=== PATIENT | female | born 1935 | race Caucasian/White ===

== ENCOUNTER 2016-05-24 10:08 | Emergency (ER) | payer MEDICARE, OTHER ==
[~2016-05-24] VITALS: Ht 170.2 cm; Wt 54.5 kg
[~2016-05-24 10:08] MED LIST: ATENOLOL25 MG PO; BP MED
[2016-05-24 10:10] VITALS: TEMP 98.6
[2016-05-24 13:23] VITALS: BP 174/90; PULSE 71
== END 2016-05-24 12:27 | disposition home or self-care (01) ==
LOC: COL.ER 10:08
DX: S00.83XA Contusion of other part of head, initial encounter (principal); W18.09XA Striking against other object with subsequent fall, initial encounter; M25.511 Pain in right shoulder

== ENCOUNTER → 2016-09-06 | Outpatient (CLI) | payer MEDICARE, OTHER | LOC: MC.RAD 08:43 | DX: Z12.31 Encounter for screening mammogram for malignant neoplasm of breast (principal) ==

== ENCOUNTER 2017-09-13 20:26 | Inpatient (IN) | payer MEDICARE, OTHER ==
[~2017-09-13] VITALS: Ht 167.6 cm; Wt 64.1 kg
[~2017-09-13 20:26] MED LIST changes: +ATARAX 10MG10 MG/TAB PO; +LEVOXYL0.025 MG; +TENORMIN 2525 MG/TAB PO; +VITAMIN D31000 I1 PO; +ZYRTEC 10MG10 MG PO
[2017-09-13] MEDS ORDERED: HCTZ12.5TAB PO (21:04)
[2017-09-13] MEDS ORDERED: SYNTHROID 0.0.025 MG PO (21:04)
[2017-09-13] MEDS ORDERED: TENORMIN100 MG PO ×2 (21:04→21:05)
[2017-09-13] MEDS ORDERED: MASON NATURAL2000 IU (21:05)
[2017-09-13] MEDS ORDERED: ZYRTEC 10MG10 MG PO (21:05)
[2017-09-13] MEDS ORDERED: FLUOROPLEX1% TP (21:06)
[2017-09-13 21:25] LABS: BASO # 0.1 (0.0-0.2); BASO % 0.5 % (0.0-2.0); EOS % 0.1 % (0-4.0); GRAN % 85.2 % (42.2-75.2); HEMATOCRIT 42.2 % (37.0-47.0); HEMOGLOBIN 14.3 g/dl (12.5-16.0); LYMPH # 1.1 (1.2-3.4); LYMPH % 9.5 % (20.0-51.0); MEAN CELL VOLUME 89 fl (80.0-100.0); MEAN CORPUSCULAR HEMOGLOBIN 30 pg (27.0-31.0); MEAN CORPUSCULAR HGB CONC 34 g/dl (33.0-37.0); MEAN PLATELET VOLUME 9.8 fl (7.4-10.4); MONO # 0.5 (0.1-0.6); MONO % 4.5 % (1.7-9.3); PLATELET COUNT 276 K/mm3 (130-400); RED BLOOD COUNT 4.74 M/mm3 (4.10-5.30); REDCELL DISTRIBUTION WIDTH-CV 12.4 % (11.5-14.5)
[2017-09-13 21:33] LABS: ALBUMIN 3.8 gm/dL (3.5-5.0); CALCIUM 9.1 mg/dL (8.4-10.2); CREATININE, serum 1.18 mg/dL (0.52-1.25); POTASSIUM 3.2 mmol/L (3.4-5.0); TOTAL PROTEIN 7.2 gm/dL (6.4-8.2)
[2017-09-13 21:55] LABS: TROPONIN-I 0.04 ng/mL (0.000-0.034)
[2017-09-13 22:05] LABS: COLLECTION METHOD CATHETER
[2017-09-13 22:13] LABS: MUCOUS Present /lpf; PH 5 (5-8); URINE APPEARANCE Hazy; URINE BACTERIA Rare /hpf; URINE BILIRUBIN Negative (NEGATIVE); URINE BLOOD 1+ (NEGATIVE); URINE COLOR Yellow; URINE GLUCOSE Negative (NEGATIVE); URINE KETONE Trace (NEGATIVE); URINE LEUKOCYTE ESTERASE 1+ (NEGATIVE); URINE NITRATE Negative (NEGATIVE); URINE PROTEIN(semi-quant) Negative (NEGATIVE); URINE RBC 0-2 /hpf; URINE UROBILINOGEN Negative (NEGATIVE)
[2017-09-13] MEDS ORDERED: ATARAX 10MG10 MG/TAB PO (22:39)
[2017-09-13] MEDS ORDERED: ATARAX 25MG25 MG/TAB PO (23:17)
[2017-09-13] MEDS ORDERED: LEVOXYL0.025 MG PO (23:21)
[2017-09-14] VITALS (7 sets, daily range): BP systolic 100–159; BP diastolic 52–82; PULSE 57–77; TEMP 97.3–99
[2017-09-14] MEDS ORDERED: MIRALAX PA17 GM/Dose PO (01:20)
[2017-09-14] MEDS ORDERED: NYSTATIN OR100 MU/ML PO (01:20)
[2017-09-14] MEDS ORDERED: TYLENOL 325MG325 MG PO (01:22)
[2017-09-14] MEDS ORDERED: ULTRAM 50MG TAB50 MG PO (01:24)
[2017-09-14 06:45] LABS: BASO % 0.4 % (0.0-2.0); EOS # 0.1 (0.0-0.7); EOS % 0.6 % (0-4.0); GRAN # 6.4 (1.4-6.5); GRAN % 75.5 % (42.2-75.2); HEMATOCRIT 38.5 % (37.0-47.0); HEMOGLOBIN 12.8 g/dl (12.5-16.0); LYMPH # 1.2 (1.2-3.4); LYMPH % 13.6 % (20.0-51.0); MEAN CELL VOLUME 91 fl (80.0-100.0); MEAN CORPUSCULAR HEMOGLOBIN 30 pg (27.0-31.0); MEAN CORPUSCULAR HGB CONC 33 g/dl (33.0-37.0); MEAN PLATELET VOLUME 10.2 fl (7.4-10.4); MONO # 0.8 (0.1-0.6); MONO % 9.5 % (1.7-9.3); PLATELET COUNT 252 K/mm3 (130-400); RED BLOOD COUNT 4.25 M/mm3 (4.10-5.30); REDCELL DISTRIBUTION WIDTH-CV 12.6 % (11.5-14.5)
[2017-09-14 06:59] LABS: CALCIUM 8.3 mg/dL (8.4-10.2); CREATININE, serum 1.02 mg/dL (0.52-1.25); POTASSIUM 3.6 mmol/L (3.4-5.0)
[2017-09-14 07:15] LABS: TROPONIN-I 6 HR POST INITIAL 0.054 ng/mL (0.000-0.034)
[2017-09-15 04:26] VITALS: BP 157/78; PULSE 68; TEMP 98.6
[2017-09-15 07:40] VITALS: BP 156/78; PULSE 70; TEMP 98.1
[2017-09-15 09:35] LABS: CALCIUM 8.8 mg/dL (8.4-10.2); CREATININE, serum 1.21 mg/dL (0.52-1.25); POTASSIUM 3.4 mmol/L (3.4-5.0)
[2017-09-15 12:08] VITALS: BP 126/73; PULSE 74; TEMP 98.3
[2017-09-15 16:30] VITALS: BP 124/69; PULSE 72; TEMP 98.4
[2017-09-15 19:21] VITALS: BP 155/89; PULSE 94; TEMP 99.6
[2017-09-15 23:43] VITALS: BP 170/69; PULSE 63; TEMP 97.5
[2017-09-16 04:28] VITALS: BP 136/79; PULSE 80; TEMP 98.1
[2017-09-16 06:44] LABS: BASO # 0.1 (0.0-0.2); BASO % 0.6 % (0.0-2.0); EOS # 0.2 (0.0-0.7); EOS % 2.4 % (0-4.0); GRAN # 5.5 (1.4-6.5); GRAN % 68.8 % (42.2-75.2); HEMATOCRIT 37.6 % (37.0-47.0); HEMOGLOBIN 12.5 g/dl (12.5-16.0); LYMPH # 1.4 (1.2-3.4); LYMPH % 17.3 % (20.0-51.0); MEAN CELL VOLUME 88 fl (80.0-100.0); MEAN CORPUSCULAR HEMOGLOBIN 29 pg (27.0-31.0); MEAN CORPUSCULAR HGB CONC 33 g/dl (33.0-37.0); MEAN PLATELET VOLUME 10.3 fl (7.4-10.4); MONO # 0.9 (0.1-0.6); MONO % 10.6 % (1.7-9.3); PLATELET COUNT 215 K/mm3 (130-400); RED BLOOD COUNT 4.26 M/mm3 (4.10-5.30); REDCELL DISTRIBUTION WIDTH-CV 12.8 % (11.5-14.5)
[2017-09-16 07:08] LABS: CALCIUM 8.7 mg/dL (8.4-10.2); CREATININE, serum 0.99 mg/dL (0.52-1.25); POTASSIUM 3.2 mmol/L (3.4-5.0)
[2017-09-16 07:30] VITALS: BP 157/80; PULSE 65; TEMP 98.8
[2017-09-16 12:36] VITALS: BP 151/68; PULSE 72; TEMP 98.1
[2017-09-16 15:52] VITALS: BP 183/79; PULSE 65; TEMP 98
[2017-09-16 19:42] VITALS: BP 177/78; PULSE 84; TEMP 98.8
[2017-09-16 23:25] VITALS: BP 156/77; PULSE 74; TEMP 98
[2017-09-17 03:34] VITALS: BP 166/101; PULSE 73; TEMP 98.3
[2017-09-17 06:34] LABS: BASO # 0.1 (0.0-0.2); BASO % 0.7 % (0.0-2.0); EOS # 0.2 (0.0-0.7); EOS % 2.3 % (0-4.0); GRAN # 7.9 (1.4-6.5); GRAN % 74.9 % (42.2-75.2); HEMATOCRIT 39.6 % (37.0-47.0); HEMOGLOBIN 13.2 g/dl (12.5-16.0); LYMPH # 1.4 (1.2-3.4); LYMPH % 12.9 % (20.0-51.0); MEAN CELL VOLUME 90 fl (80.0-100.0); MEAN CORPUSCULAR HEMOGLOBIN 30 pg (27.0-31.0); MEAN CORPUSCULAR HGB CONC 33 g/dl (33.0-37.0); MEAN PLATELET VOLUME 10.2 fl (7.4-10.4); MONO # 0.9 (0.1-0.6); MONO % 8.8 % (1.7-9.3); PLATELET COUNT 231 K/mm3 (130-400); RED BLOOD COUNT 4.42 M/mm3 (4.10-5.30); REDCELL DISTRIBUTION WIDTH-CV 12.6 % (11.5-14.5)
[2017-09-17 06:44] LABS: CALCIUM 8.9 mg/dL (8.4-10.2); CREATININE, serum 0.9 mg/dL (0.52-1.25); MAGNESIUM 1.8 mg/dL (1.6-2.3)
[2017-09-17 07:42] VITALS: BP 169/79; PULSE 76; TEMP 98.5
[2017-09-17 12:11] VITALS: BP 181/89; PULSE 96; TEMP 97.7
[2017-09-17 16:24] VITALS: BP 130/85; PULSE 80; TEMP 98.2
[2017-09-17 20:24] VITALS: BP 155/73; PULSE 67; TEMP 98.2
[2017-09-18 00:53] VITALS: BP 167/91; PULSE 67; TEMP 97.9
[2017-09-18 03:57] VITALS: BP 141/86; PULSE 72; TEMP 97.3
[2017-09-18 07:54] LABS: CALCIUM 8.8 mg/dL (8.4-10.2); CREATININE, serum 0.96 mg/dL (0.52-1.25); POTASSIUM 3.9 mmol/L (3.4-5.0)
[2017-09-18 08:03] VITALS: BP 151/78; PULSE 78; TEMP 98.2
[2017-09-18] MEDS ORDERED: AMOXICILLIN 50500 MG PO (08:59)
[2017-09-18] MEDS ORDERED: TENORMIN100 MG PO (09:00)
[2017-09-18] MEDS ORDERED: ULTRAM 50MG TAB50 MG PO (09:00)
[2017-09-18] MEDS ORDERED: ALTACE 5MG5 MG PO (09:00)
[2017-09-18] MEDS ORDERED: MIRALAX PA17 GM/Dose PO (09:01)
== END 2017-09-18 13:57 | DRG 640 ==
LOC: COL.ER 20:26 → MEDICAL 22:26
PROVIDERS: Emergency Medicine; Internal Medicine; Nurse Practitioner; Physician Assistant
DX: E86.0 Dehydration (principal); I21.A1 Myocardial infarction type 2; N39.0 Urinary tract infection, site not specified; F05 Delirium due to known physiological condition; R00.1 Bradycardia, unspecified; Z66 Do not resuscitate; B95.2 Enterococcus as the cause of diseases classified elsewhere; B96.20 Unspecified Escherichia coli [E. coli] as the cause of diseases classified elsewhere; I10 Essential (primary) hypertension; E87.6 Hypokalemia; F03.90 Unspecified dementia, unspecified severity, without behavioral disturbance, psychotic disturbance, mood disturbance, and anxiety; Z87.891 Personal history of nicotine dependence
CPT/HCPCS: 99232-AI; 99239; G0378; G8978-GP; G8979-GP; G8987-GO; G8988-GO; J1650; J3480; J7030; J7050

== ENCOUNTER 2017-10-27 15:17 | Inpatient (IN) | payer MEDICARE, OTHER ==
[~2017-10-27] VITALS: Ht 160 cm; Wt 56.6 kg
[~2017-10-27 15:17] MED LIST changes: +ALTACE 5MG5 MG PO; +AMOXICILLIN 50500 MG PO; +ATARAX 25MG25 MG/TAB PO; +FLUOROPLEX1% TP; +HCTZ12.5TAB PO; +LEVOXYL0.025 MG PO; +MASON NATURAL2000 IU; +MIRALAX PA17 GM/Dose PO; +NYSTATIN OR100 MU/ML PO; +SYNTHROID 0.0.025 MG PO; +TENORMIN100 MG PO; +TYLENOL 325MG325 MG PO; +ULTRAM 50MG TAB50 MG PO
[2017-10-27] MEDS ORDERED: NORVASC2.5 MG PO ×2 (15:29→15:49)
[2017-10-27] MEDS ORDERED: SYNTHROID 0.0.025 MG PO ×2 (15:29→15:49)
[2017-10-27] MEDS ORDERED: LOPRESSOR 225 MG/TAB PO ×2 (15:30→15:50)
[2017-10-27] MEDS ORDERED: MICROZIDE12.5 MG PO (15:30)
[2017-10-27] MEDS ORDERED: MASON NATURAL2000 IU PO (15:49)
[2017-10-27] MEDS ORDERED: ALTACE 5MG5 MG PO (15:50)
[2017-10-27] MEDS ORDERED: ZYRTEC 10MG10 MG PO (15:50)
[2017-10-27] MEDS ORDERED: ASPIRIN 81M81 MG/TA2 PO (15:51)
[2017-10-27] MEDS ORDERED: TAMBOCOR50 MG PO (15:52)
[2017-10-27 15:55] LABS: HEMATOCRIT 42.1 % (37.0-47.0); HEMOGLOBIN 13.6 g/dl (12.5-16.0); MEAN CELL VOLUME 92 fl (80.0-100.0); MEAN CORPUSCULAR HEMOGLOBIN 30 pg (27.0-31.0); MEAN CORPUSCULAR HGB CONC 32 g/dl (33.0-37.0); MEAN PLATELET VOLUME 9.3 fl (7.4-10.4); PLATELET COUNT 330 K/mm3 (130-400); RED BLOOD COUNT 4.57 M/mm3 (4.10-5.30); REDCELL DISTRIBUTION WIDTH-CV 13.4 % (11.5-14.5)
[2017-10-27 15:59] LABS: PROTHROMBIN TIME 11.9 SECONDS (9.7-12.8)
[2017-10-27 16:05] LABS: ALBUMIN 3.9 gm/dL (3.5-5.0); BILIRUBIN,TOTAL 0.6 mg/dL (0.0-1.0); CALCIUM 9.2 mg/dL (8.4-10.2); CREATININE, serum 1.33 mg/dL (0.52-1.25); POTASSIUM 3.5 mmol/L (3.4-5.0); TOTAL PROTEIN 7.1 gm/dL (6.4-8.2)
[2017-10-27 16:09] LABS: BAND 6 % (0-10); LYMPHOCYTE 4 % (20.0-51.0); NEUTROPHILS 89 % (42.0-75.2); PLATELET ESTIMATE NORMAL (NORMAL)
[2017-10-27 16:24] LABS: TROPONIN-I 0.066 ng/mL (0.000-0.034)
[2017-10-27 16:35] LABS: ARTERIAL BLD GAS TCO2 CT 22.2; ARTERIAL BLOOD GAS BASE EXCESS -3.5 (-2-2); ARTERIAL BLOOD GAS HCO3 21.1 meq/L (22-26); ARTERIAL BLOOD GAS PCO2 36.5 mmHg (35-45); ARTERIAL BLOOD GAS PO2 74.9 mmHg (80-100); ARTERIAL BLOOD GAS pH 7.38 (7.35-7.45)
[2017-10-27 20:00] VITALS: BP 128/78; PULSE 94
[2017-10-27 20:30] VITALS: BP 111/66; PULSE 92
[2017-10-27 20:31] VITALS: BP 111/66; BP 128/78; PULSE 92; PULSE 97; TEMP 98.8
[2017-10-27 21:29] VITALS: BP 99/68; PULSE 91
[2017-10-27 22:00] VITALS: BP 132/87; PULSE 90
[2017-10-27 22:15] LABS: COLLECTION METHOD CATHETER
[2017-10-27 22:23] LABS: MUCOUS Present /lpf; PH 5 (5-8); SQUAMOUS EPITHELIAL 0-2 /hpf; URINE APPEARANCE Hazy; URINE BACTERIA None Seen /hpf; URINE BILIRUBIN Negative (NEGATIVE); URINE BLOOD 1+ (NEGATIVE); URINE COLOR Yellow; URINE GLUCOSE 1+ (NEGATIVE); URINE KETONE Trace (NEGATIVE); URINE LEUKOCYTE ESTERASE Negative (NEGATIVE); URINE NITRATE Negative (NEGATIVE); URINE PROTEIN(semi-quant) 1+ (NEGATIVE); URINE UROBILINOGEN Negative (NEGATIVE)
[2017-10-27 22:53] VITALS: BP 106/73; PULSE 92
[2017-10-28 00:50] VITALS: BP 141/84; PULSE 92; TEMP 98
[2017-10-28 04:23] VITALS: BP 140/93; PULSE 88; TEMP 98.8
[2017-10-28 07:39] LABS: BASO # 0.1 (0.0-0.2); BASO % 0.4 % (0.0-2.0); EOS # 0.2 (0.0-0.7); EOS % 1.6 % (0-4.0); GRAN # 10.3 (1.4-6.5); GRAN % 81.1 % (42.2-75.2); LYMPH # 1.3 (1.2-3.4); LYMPH % 9.9 % (20.0-51.0); MEAN CELL VOLUME 93 fl (80.0-100.0); MEAN CORPUSCULAR HGB CONC 32 g/dl (33.0-37.0); MONO # 0.8 (0.1-0.6); MONO % 6.5 % (1.7-9.3); PLATELET COUNT 233 K/mm3 (130-400); RED BLOOD COUNT 3.84 M/mm3 (4.10-5.30); REDCELL DISTRIBUTION WIDTH-CV 13.6 % (11.5-14.5)
[2017-10-28 07:45] LABS: HEMATOCRIT 35.7 % (37.0-47.0); MEAN CORPUSCULAR HEMOGLOBIN 30 pg (27.0-31.0)
[2017-10-28 07:47] LABS: HEMOGLOBIN 11.4 g/dl (12.5-16.0)
[2017-10-28 08:01] VITALS: BP 144/79; PULSE 87; TEMP 98.4
[2017-10-28 08:34] LABS: BILIRUBIN,TOTAL 0.4 mg/dL (0.0-1.0); CALCIUM 8.3 mg/dL (8.4-10.2); CREATININE, serum 1.11 mg/dL (0.52-1.25); POTASSIUM 3.6 mmol/L (3.4-5.0); TOTAL PROTEIN 5.7 gm/dL (6.4-8.2)
[2017-10-28 12:36] VITALS: BP 149/81; PULSE 85; TEMP 97.9
[2017-10-28 15:37] VITALS: BP 150/96; BP 150/967; PULSE 86; TEMP 97.7
[2017-10-28 20:00] VITALS: BP 159/81; PULSE 82; TEMP 99
[2017-10-29] VITALS (7 sets, daily range): BP systolic 134–173; BP diastolic 67–88; PULSE 68–102; TEMP 97.5–98.9
[2017-10-29 06:48] LABS: BASO # 0.1 (0.0-0.2); BASO % 0.7 % (0.0-2.0); EOS # 0.4 (0.0-0.7); EOS % 4.5 % (0-4.0); GRAN # 6.5 (1.4-6.5); GRAN % 75.4 % (42.2-75.2); HEMOGLOBIN 10.6 g/dl (12.5-16.0); LYMPH % 11.9 % (20.0-51.0); MEAN CELL VOLUME 93 fl (80.0-100.0); MEAN CORPUSCULAR HEMOGLOBIN 30 pg (27.0-31.0); MEAN CORPUSCULAR HGB CONC 32 g/dl (33.0-37.0); MEAN PLATELET VOLUME 9.6 fl (7.4-10.4); MONO # 0.6 (0.1-0.6); MONO % 6.9 % (1.7-9.3); PLATELET COUNT 263 K/mm3 (130-400); RED BLOOD COUNT 3.58 M/mm3 (4.10-5.30); REDCELL DISTRIBUTION WIDTH-CV 13.6 % (11.5-14.5)
[2017-10-29 06:51] LABS: ALBUMIN 2.7 gm/dL (3.5-5.0); BILIRUBIN,TOTAL 0.3 mg/dL (0.0-1.0); CALCIUM 8.4 mg/dL (8.4-10.2); CREATININE, serum 1.01 mg/dL (0.52-1.25); POTASSIUM 3.5 mmol/L (3.4-5.0); TOTAL PROTEIN 5.4 gm/dL (6.4-8.2)
[2017-10-29 06:54] LABS: HEMATOCRIT 33.4 % (37.0-47.0)
[2017-10-30 03:56] VITALS: BP 178/97; PULSE 82; TEMP 98.3
[2017-10-30 07:41] VITALS: BP 155/91; PULSE 90; TEMP 98.2
[2017-10-30] MEDS ORDERED: ELIQUIS 2.5 PO (08:58)
[2017-10-30 09:18] LABS: CALCIUM 8.9 mg/dL (8.4-10.2); CREATININE, serum 0.92 mg/dL (0.52-1.25); POTASSIUM 3.2 mmol/L (3.4-5.0)
[2017-10-30 11:14] VITALS: BP 155/91; PULSE 90; TEMP 98.2
== END 2017-10-30 12:04 | DRG 175 ==
LOC: COL.ER 15:17 → MEDICAL 18:39
PROVIDERS: Emergency Medicine; Family Medicine
DX: I26.99 Other pulmonary embolism without acute cor pulmonale (principal); I21.A1 Myocardial infarction type 2; N17.9 Acute kidney failure, unspecified; E46 Unspecified protein-calorie malnutrition; Z66 Do not resuscitate; I12.9 Hypertensive chronic kidney disease with stage 1 through stage 4 chronic kidney disease, or unspecified chronic kidney disease; N18.9 Chronic kidney disease, unspecified; I48.91 Unspecified atrial fibrillation; F03.90 Unspecified dementia, unspecified severity, without behavioral disturbance, psychotic disturbance, mood disturbance, and anxiety; E86.0 Dehydration
CPT/HCPCS: J1650; J2405; J2543; J7030; Q9967

== ENCOUNTER → 2018-12-09 | Outpatient (CLI) | payer MEDICARE, OTHER ==
[~2018-12-09] MED LIST changes: +ASPIRIN 81M81 MG/TA2 PO; +ELIQUIS 2.5 PO; +LOPRESSOR 225 MG/TAB PO; +MASON NATURAL2000 IU PO; +MICROZIDE12.5 MG PO; +NORVASC2.5 MG PO; +TAMBOCOR50 MG PO
== END ==
LOC: COL.RAD 13:03
DX: M47.816 Spondylosis without myelopathy or radiculopathy, lumbar region (principal); M16.0 Bilateral primary osteoarthritis of hip

== ENCOUNTER → 2020-12-19 | Outpatient (CLI) | payer MEDICARE, OTHER ==
[2020-12-19 19:18] LABS: COLLECTION METHOD CLEAN CATCH
[2020-12-19 19:42] LABS: MUCOUS Present /lpf; PH 5 (5-8); SQUAMOUS EPITHELIAL 20-50 /hpf; URINE APPEARANCE Turbid; URINE BACTERIA Rare /hpf; URINE BILIRUBIN Negative (NEGATIVE); URINE BLOOD 1+ (NEGATIVE); URINE COLOR Amber; URINE GLUCOSE Negative (NEGATIVE); URINE KETONE Negative (NEGATIVE); URINE LEUKOCYTE ESTERASE 2+ (NEGATIVE); URINE NITRATE Negative (NEGATIVE); URINE PROTEIN(semi-quant) 1+ (NEGATIVE)
== END ==
LOC: ZCOL.LAB 15:00
PROVIDERS: Internal Medicine
DX: Z01.89 Encounter for other specified special examinations (principal)

== ENCOUNTER → 2021-02-08 | Outpatient (CLI) | payer MEDICARE, OTHER ==
[2021-02-08 17:28] LABS: COLLECTION METHOD CLEAN CATCH
[2021-02-08 18:02] LABS: MUCOUS Present /lpf; PH 5 (5-8); URINE APPEARANCE Turbid; URINE BACTERIA Rare /hpf; URINE BILIRUBIN Negative (NEGATIVE); URINE BLOOD Negative (NEGATIVE); URINE COLOR Amber; URINE GLUCOSE Negative (NEGATIVE); URINE KETONE Trace (NEGATIVE); URINE LEUKOCYTE ESTERASE Trace (NEGATIVE); URINE NITRATE Negative (NEGATIVE); URINE PROTEIN(semi-quant) 1+ (NEGATIVE)
== END ==
LOC: ZCOL.LAB 17:16
PROVIDERS: Internal Medicine
DX: Z01.89 Encounter for other specified special examinations (principal)

== ENCOUNTER → 2021-03-11 | Outpatient (CLI) | payer MEDICARE, OTHER ==
[2021-03-11 15:19] LABS: COLLECTION METHOD CLEAN CATCH; URINE COLOR Yellow (YELLOW)
[2021-03-11 15:20] LABS: PH 5 (5-8); URINE APPEARANCE Clear (CLEAR/HAZY); URINE BILIRUBIN Negative (NEGATIVE); URINE BLOOD 1+ (NEGATIVE); URINE GLUCOSE 1+ (NEGATIVE); URINE KETONE Negative (NEGATIVE); URINE LEUKOCYTE ESTERASE Negative (NEGATIVE); URINE NITRATE Negative (NEGATIVE); URINE PROTEIN(semi-quant) 1+ (NEGATIVE); URINE UROBILINOGEN Negative (NEGATIVE)
[2021-03-11 16:11] LABS: MUCOUS Present (NOT PRESENT); URINE BACTERIA Rare (NONE SEEN)
== END ==
LOC: ZCOL.LAB 13:42
PROVIDERS: Internal Medicine
DX: R82.90 Unspecified abnormal findings in urine (principal)

== ENCOUNTER → 2021-04-20 | Outpatient (CLI) | payer MEDICARE, OTHER | LOC: ZCOL.LAB 17:12 | DX: I10 Essential (primary) hypertension (principal) ==

== ENCOUNTER → 2021-04-24 | Outpatient (CLI) | payer MEDICARE, OTHER ==
[2021-04-24 20:01] LABS: CREATININE, serum 1.15 mg/dL (0.57-1.11); POTASSIUM 4.3 mmol/L (3.5-4.5)
== END ==
LOC: ZCOL.LAB 19:03
PROVIDERS: Internal Medicine
DX: E87.6 Hypokalemia (principal)